=== PATIENT | female | born 1980 | race Caucasian/White ===

== ENCOUNTER 2016-11-03 14:15 | Outpatient (CLI) | payer MEDICAID | END 2016-11-03 15:10 | disposition home or self-care (01) | LOC: FBCOUT 14:15 → FBC 14:17 → FBCOUT 15:10 | PROVIDERS: ATTEND Family Medicine | DX: O36.8190 Decreased fetal movements, unspecified trimester, not applicable or unspecified (principal); Z3A.00 Weeks of gestation of pregnancy not specified | CPT/HCPCS: 59025; G0463 ==

== ENCOUNTER 2016-11-06 15:47 | Outpatient (CLI) | payer MEDICAID ==
--- NOTE | 2016-11-06 16:59 | US ---
HISTORY: decelerations and clinical. Estimated gestational age 36 weeks 6 days. TECHNIQUE: Transabdominal obstetric sonography performed for purpose of biophysical profile scoring. COMPARISON: None FINDINGS: Coarse are as follows: breathing movements: 2 motion: 2 tone: 2 Amniotic fluid volume: 2 BIOPHYSICAL PROFILE SCORE: 8/8. PRESENTATION: Vertex CARDIAC ACTIVITY: Present 144 BPM CARY: 10 cm. IMPRESSION: 1. Biophysical profile score 8/8. 2. Live intrauterine fetus in vertex presentation. Findings were indicated to the [facility] at 4:56 PM 11/06/2016 The findings were uploaded to the electronic medical record for review at approximately 5:00 PM 11/06/2016
== END 2016-11-06 17:20 | disposition home or self-care (01) ==
LOC: FBCOUT 15:47 → FBC 15:54 → FBCOUT 17:20
PROVIDERS: ATTEND Family Medicine
DX: O76 Abnormality in fetal heart rate and rhythm complicating labor and delivery (principal); O09.523 Supervision of elderly multigravida, third trimester; Z3A.36 36 weeks gestation of pregnancy

== ENCOUNTER 2016-11-14 11:18 | Inpatient (IN) | payer MEDICAID ==
[2016-11-14] MEDS ORDERED: OXYTOCIN IN LR 500 ML IV ONE ×2 (11:58→17:22)
[2016-11-14] MEDS ORDERED: IV START KIT ONE (11:58)
[2016-11-14] MEDS ORDERED: SODIUM CHLORIDE 0.9% FLUSH 10 ML ONE (11:58)
[2016-11-14] MEDS ORDERED: LACTATED RINGERS 1,000 ML IV PRN (11:58)
[2016-11-14] MEDS ORDERED: MISOPROSTOL 25 MCG TABLET VG SCH (12:00)
--- NOTE | 2016-11-14 13:01 | US ---
BIOPHYSICAL PROFILE COMPARISON: 11/06/2016 HISTORY: Possible stillbirth. No heart tones. No movement. Positive Down's syndrome. Gestational age 38 weeks 0 days FINDINGS: breathing movements: 0 motion: 0 tone: 0 Amniotic fluid volume: 0 heart rate: 0 bpm Presentation: Cephalic IMPRESSION: 1. demise. Cephalic position. The results were discussed with Jody Juardo MD 11/14/2016 at 12:57
[2016-11-14 13:22] LABS: HEMATOCRIT 37.3 % (37.0-47.0); HEMOGLOBIN 12.3 gm/l (12.0-16.0); MEAN CELL VOLUME 90.5 fl (81.0-99.0); MEAN CORPUSCULAR HEMOGLOBIN 29.9 pg (27.0-31.0); RED CELL DISTRIBUTION WIDTH 15.5 % (11.5-14.5)
[2016-11-14 14:07] VITALS: BMI 33.9
[2016-11-14] MEDS ORDERED: LEVOTHYROXINE SODIUM 200 MCG TABLET PO ONE (15:45)
[2016-11-14] MEDS ORDERED: OXYTOCIN 10 UNITS/ML VIAL ONE (17:22)
[2016-11-14] MEDS ORDERED: LIDOCAINE 1% (PRES FREE) 30 ML VIAL ONE (17:22)
[2016-11-14] MEDS ORDERED: MINERAL OIL 25 ML BOT ONE (17:22)
[2016-11-14] MEDS ORDERED: PUMP TUBING ONE (17:22)
[2016-11-14] MEDS ORDERED: LIDOCAINE Viscous 2% 15 ML UDCUP ONE (17:22)
[2016-11-14] MEDS ORDERED: OXYTOCIN IN LR 500 ML IV PRN (17:45)
[2016-11-14] MEDS ORDERED: LACTATED RINGERS 1,000 ML IV SCH (17:45)
[2016-11-14] MEDS ORDERED: BENZOCAINE/MENTHOL 60 APPLIC/BOT TP PRN (19:46)
[2016-11-14] MEDS ORDERED: HYDROCODONE/ACETAMINOPHEN 5/325MG TABLET PO PRN (19:46)
[2016-11-14] MEDS ORDERED: DOCUSATE SODIUM 100 MG CAPSULE PO PRN (19:46)
[2016-11-14] MEDS ORDERED: IBUPROFEN 800 MG TABLET PO PRN (19:46)
[2016-11-14] MEDS ORDERED: LANOLIN 50 APPLIC/7G TUBE TP PRN (19:46)
[2016-11-14] MEDS ORDERED: SENNOSIDES 8.6 MG TABLET PO PRN (19:46)
--- NOTE | 2016-11-14 19:51 | PCMAN ---
OB Admission Note - History : 3 Term: 2 : 0 Abortions (S&E): 0 Livin EDC:: 11/28/16 Gestational Age (weeks): 38 Days (#/7): 0 Admit Cervical Effacement (%):: 2 Admit Station:: -2 Admit Presentaton:: Vertex Membrane Status: Intact Contractions: Yes Contraction Frequency:: q 30 min Status:: no heart tones Summary of Course:: Quad/cfDNA positive for Down. Level 2 u/s showed poss. small VSD (also by echo)/bilateral clubbed feet/hydronephrosis/absent nasal bone. AMA, Diet-controlled GDM, Hypothyroidism on Levothyroxine 200mcg. - Labs Blood Type: A (+) positive Rubella Status: Immune GBS Status: Positive Abnormal Labs: Other (TSH abnormal in early , 2/4 abnl on 3 hrs GTT) - Review of Systems No FM since this morning, contraction pain approx. q 30 min - Physical Exam General: Other (Appropriately sad) Psych/Mental Status: Mood/Affect Appropriate Lungs: Clear to Auscultation Bilaterally Cardiovascular: Regular Rate and Rhythm Abdomen: Other (gravid, nontender, VTX by kirby) Extremities: Full ROM - Problems (1) demise in marin greater than 22 weeks gestation, antepartum Status: Acute Code: O36.4XX0 Assessment/Plan: Was sent from clinic today for no FHTs and u/s in clinic did not demonstrate cardiac or activity. Repeat u/s here on L and D confirmed no cardiac activity and BPP 0/8. -will induce now with Miso x 1 followed by likely AROM/Pitocin (2) GDM (gestational diabetes mellitus), class A1 Status: Acute Code: O24.410 Assessment/Plan: Diet-controlled. (3) Hypothyroidism Status: Acute Code: E03.9 Assessment/Plan: On Levothyroxine 200mcg. Last TSH was 09/30/16 and 4.130. Asymptomatic. -will check TSH now -will continue daily Levothyroxine 200mcg -f/u , will likely need dose readjustment (4) Down syndrome of fetus in current Status: Acute Code: O35.1XX0 Assessment/Plan: Quad, cfDNA positive for Down Syndrome. Pt declined amniocentesis. Followed by MFM. Level 2 u/s with small VSD (confirmed by echo), bilateral clubbed feet, absent nasal bone, hydronephrosis.
--- NOTE | 2016-11-14 20:12 | PCMDEL ---
Delivery Note - Labor 1st stage (hr/min):: 2hrs 50min 2nd stage (hr/min):: 3 min 3rd stage (hr/min):: 2 min Total (hr/min):: 2hrs 55min Pushed (hr/min):: 3 min - Delivery Delivery (Date): 11/14/16 Delivery (Time): 19:23 Infant Gender: Female Presentation: Cephalic Position: OA Umbilical Cord: 3 Vessel Delayed Cord Clamping:: Not Performed 1 Minute Total: 0 5 Minute Total: 0 Placenta:: small, complete EBL:: 100 Perineum:: intact Suture:: n/a Anesthesia/Meds:: Misoprostol x 1, Pitocin Length ROM:: 1 hr 50 min Comments:: Stillborn girl delivered over intact perineum. Cord clamped and cut and stillborn placed on mother's chest per mother's request. There was no amniotic fluid noted during delivery. Pitocin 30 units were given. Placenta was intact but small with a 3 vessel cord. EBL 100ml. Stillborn examination: Female. Syndromic appearing face with absent nasal bone and upward slant to eyes. Ears normal. I did not appreciate a single crease in palms. Clubbed feet bilateral.
[2016-11-15 06:17] LABS: HEMATOCRIT 34.8 % (37.0-47.0); HEMOGLOBIN 11.7 gm/l (12.0-16.0)
[2016-11-15] MEDS ORDERED: LEVOTHYROXINE SODIUM 200 MCG TABLET PO SCH (07:30)
[2016-11-15 08:52] VITALS: BP 116/66
--- NOTE | 2016-11-15 10:18 | PDOC39B ---
Hospital Course: ADMIT DATE: 11/14/16 DISCHARGE DATE: 11/15/16 ADMISSION DIAGNOSES: IUFD at term PROCEDURES: IOL, and HISTORY OF PRESENT ILLNESS: 36 year old G3 T2 L2 at 38 weeks 0 days presenting with IUFD at term, known Down Syndrome baby. HOSPITAL COURSE: The patient delivered yesterday by . No complications. Coping well. Baby taken to home for cremation. By day of discharge the patient is ambulating, eating, voiding, and passing flatus without difficulty. Pain is controlled and lochia is appropriate. - Physical Exam Vital Signs: Temp Pulse Resp BP Pulse Ox 98.0 F 86 16 116/66 11/15/16 08:30 11/15/16 08:30 11/15/16 08:30 11/15/16 08:30 General: Afebrile Psych/Mental Status: Mood/Affect Appropriate, Tearful Neurological: Alert HEENT: Atraumatic Lungs: Clear to Auscultation Bilaterally Cardiovascular: Regular Rate and Rhythm Breast: Soft Fundus: Firm, At Umbilicus Abdomen: Normal Bowel Sounds Lochia: Light Rectal Exam: Deferred Extremities: Other (nt, no edema) Skin: Normal Color - Discharge Diagnosis (1) demise in marin greater than 22 weeks gestation, antepartum Status: Acute Assessment/Plan: underwent IOL for IUDFD and delivered last night. Is coping well. ready to go home. (2) Down syndrome of fetus in current Status: Acute Assessment/Plan: Quad, cfDNA positive for Down Syndrome. Pt declined amniocentesis. Followed by MFM. Level 2 u/s with small VSD (confirmed by echo), bilateral clubbed feet, absent nasal bone, hydronephrosis. - Discharge Plan Condition: Good Disposition: Home Prescriptions: Ibuprofen [Motrin] 800 mg PO Q8H PRN #30 tablet PRN Reason: Pain Follow-Up: Sera Wilkerson PA [Referring] - (next week the clinic will call)
--- NOTE | 2016-11-20 11:08 | SURGPATH ---
[facility] [address] [place] [id number] Patient Name: HARRISON PRIDE MR#: [id number] : 1980 Gender: F Specimen #: [id number] Collected: 11/14/2016 Received: 11/18/2016 Reported: 11/20/2016 Submitting Phys: LESIA ERNST Copy To Phys: [facility] WHITNEY VELASCO Clinical History / Pre-Operative Diagnosis: 38 week demise Specimen Source / Surgical Procedure Performed: Placenta Interpretation: PLACENTA, UNSPECIFIED DELIVERY: - THIRD TRIMESTER PLACENTAL DISC WITH THREE-VESSEL UMBILICAL CORD EXHIBITING NO PATHOLOGIC ABNORMALITIES Electronically Signed Out Aldair Mary M.D. Gross Description: The specimen is received in a formalin filled container labeled with the patient's name. A 25 x 1.5 cm, normally coiled, dusky nicole-brown three-vessel umbilical cord inserts 2.5 cm from the nearest edge of a 14.5 x 13 x 3 cm, 286 g discoid placenta. The surface and membranes are glistening and mcelroy green. The membranes insert normally. There is no subchorionic fibrin. The maternal surface is red-brown spongy without missing cotyledons. Sectioning through the disc reveals no nodule or induration. Gross summary: Guerrero placenta with nicole green discoloration suggestive of meconium staining. Summary of sections: A-umbilical cord and membranes B-edge section adjacent to umbilical cord insertion site C-random full thickness section Kristan Nunez Microscopic Description: Copy Center Operator sections of the placenta are examined. The umbilical cord shows 3 vessels without acute inflammation. The membranes are thin without acute inflammation or pigment deposition. The sections of the placental disc show mature chorionic villi with peripherally placed vascular spaces and well-developed syncytial knots. 1: [id number] O43.893
== END 2016-11-15 10:57 | disposition home or self-care (01) | DRG 775 ==
LOC: FBC 11:18 → EDSTATUS 11-28 11:17
PROVIDERS: ADMIT Family Medicine; ATTEND Family Medicine
PROC: 10E0XZZ Delivery of Products of Conception, External Approach (ICD-10-PCS; principal; 2016-11-14)
PROC: 3E033VJ Introduction of Other Hormone into Peripheral Vein, Percutaneous Approach (ICD-10-PCS; 2016-11-14)
DX: O36.4XX0 Maternal care for intrauterine death, not applicable or unspecified (principal); O24.420 Gestational diabetes mellitus in childbirth, diet controlled; O99.284 Endocrine, nutritional and metabolic diseases complicating childbirth; E03.9 Hypothyroidism, unspecified; O35.1XX0 Maternal care for (suspected) chromosomal abnormality in fetus, not applicable or unspecified; Z37.1 Single stillbirth; Z3A.38 38 weeks gestation of pregnancy; O09.523 Supervision of elderly multigravida, third trimester